=== PATIENT | male | born 2005 | race Hispanic/Latino ===

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

== ENCOUNTER 2023-02-07 12:40 | Emergency (ER) | payer SELFPAY ==
[2023-02-07] MEDS ORDERED: Ketorolac Tromethamine 30 MG/ML VIAL ONE (14:14)
[2023-02-07] MEDS ORDERED: Cyclobenzaprine 10 MG TAB ONE (14:14)
== END 2023-02-07 14:57 | disposition home or self-care (01) ==
LOC: ERS 12:40
DX: S39.011A Strain of muscle, fascia and tendon of abdomen, initial encounter (principal); M54.6 Pain in thoracic spine; G89.29 Other chronic pain; F17.290 Nicotine dependence, other tobacco product, uncomplicated; Y93.19 Activity, other involving water and watercraft
CPT/HCPCS: 71045; 96372; J1885